=== PATIENT | female | born 1965 | race Caucasian/White ===

== ENCOUNTER 2021-03-03 22:48 | Emergency (ER) | payer OTHER ==
[~2021-03-03] VITALS: Ht 172.7 cm; Wt 72.6 kg
[2021-03-03] MEDS ORDERED: ZOLOFT25 MG PO (23:04)
[2021-03-03] MEDS ORDERED: PREDNISONE 5 MG5 MG PO (23:04)
[2021-03-03] MEDS ORDERED: NEURONTIN 300M300 M2 PO (23:04)
[2021-03-03] MEDS ORDERED: FLEXERIL PO (23:43)
[2021-03-04 00:01] VITALS: BP 153/98
== END 2021-03-04 00:01 | disposition home or self-care (01) ==
LOC: M.ERS 22:48
DX: S70.11XA Contusion of right thigh, initial encounter (principal); S70.01XA Contusion of right hip, initial encounter; M79.7 Fibromyalgia; I10 Essential (primary) hypertension; M06.9 Rheumatoid arthritis, unspecified; F17.210 Nicotine dependence, cigarettes, uncomplicated; Z79.899 Other long term (current) drug therapy; W01.198A Fall on same level from slipping, tripping and stumbling with subsequent striking against other object, initial encounter; Y93.01 Activity, walking, marching and hiking; Y92.098 Other place in other non-institutional residence as the place of occurrence of the external cause; Y99.8 Other external cause status